=== PATIENT | female | born 1940 | race Caucasian/White ===

== ENCOUNTER 2018-08-25 14:38 | Inpatient (IN) ==
[2018-08-25] MEDS ORDERED: ONDANSETRON INJ 2 MG/ML 2 ML VIAL IV STA (15:26)
[2018-08-25] MEDS ORDERED: FAMOTIDINE 20MG IV PUSH 20 MG/5 ML SYR IV STA (15:26)
[2018-08-25] MEDS ORDERED: SODIUM CHLORIDE 0.9% 1000ML 1,000 ML IV SCH (15:30)
[2018-08-25 15:50] LABS: Basophils # (auto) 0.02 K/uL (0-0.2); Basophils % (auto) 0.3 %; Eosinophils # (auto) 0.08 K/uL (0-0.5); Eosinophils % (auto) 1.2 %; Hematocrit (blood only) 37.4 % (37-47); Immature Granulocytes # (auto) 0.02 K/uL (0.00-0.02); Immature Granulocytes % (auto) 0.3 %; Lymphocytes # (auto) 1.28 K/uL (1.2-3.4); Lymphocytes % (auto) 19.4 %; Mean Corpuscular Hgb Conc 32.1 g/dL (32-36); Mean Platelet Volume 10.1 fL (7.4-10.4); Monocytes # (auto) 0.44 K/uL (0.11-0.59); Monocytes % (auto) 6.7 %; Neutrophils # (auto) 4.77 K/uL (1.4-6.5); Neutrophils % (auto) 72.1 %; Platelet Count 291 K/uL (130-400); RDW Coefficient of Variation 16.6 % (11.5-14.5); RDW Standard Deviation 57.2 fL (36.4-46.3); Red Blood Count 4.02 M/uL (4.2-5.4); White Blood Count 6.61 K/uL (4.8-10.8)
[2018-08-25 15:54] LABS: iSTAT Creatinine 0.6 mg/dl (0.6-1.3); iSTAT Hemoglobin 12.2 g/dl (12.0-16.0); iSTAT Ionized Calcium 1.14 mmol/l (1.12-1.32); iSTAT Potassium 3.4 mEq/L (3.3-5.0)
--- NOTE | 2018-08-25 15:57 | XRay Report ---
XR chest 1V portable HISTORY: 77 years-old Female vomiting blood acute emesis COMPARISON: Chest radiograph 06/16/2017 TECHNIQUE: Portable AP view of the chest FINDINGS: Cardiac mediastinal and hilar silhouettes are unchanged. Stable ill-defined 8 mm nodular opacity abou t the lateral left midlung. Mild right hemidiaphragmatic elevation. Subsegmental left basilar atelect asis/scarring. Stable positioning of the right IJ [id number] catheter. Bones of the chest appear g rossly intact. Cholecystectomy. IMPRESSION: 1. No acute process. 2. Unchanged 8 mm nodular opacity of the lateral left midlung. The above report was generated using voice recognition software. It may contain grammatical, syntax o r spelling errors. Electronically signed by: Chester Santizo M.D. 08/25/2018 3:56 PM
[2018-08-25 16:05] LABS: Partial Thromboplastin Ratio 0.9; Partial Thromboplastin Time 24.5 Seconds (21.0-31.0); Prothrombin Time 10.1 Seconds (9.0-12.0)
[2018-08-25 16:08] LABS: Albumin Level 2.9 gm/dl (3.4-5.0); BUN Creatinine Ratio 19.7 (10-20); Calcium 8.4 mg/dl (8.5-10.1); Creatinine Clr Calc Pharmacy 55.5 ml/min; Est GFR (African American) 97.9; Est GFR (Non-African American) 84.4; Potassium 3.3 mmol/L (3.5-5.1)
[2018-08-25 16:12] LABS: Albumin Globulin Ratio 0.9 (0.9-2); Bilirubin,Total 0.7 mg/dl (0.2-1); Globulin 3.1 gm/dl (2.5-4.0); Troponin I 0.022 ng/ml (0-0.045)
[2018-08-25] MEDS ORDERED: PANTOprazole 80 MG in DEXTROSE 5% 100 ML IV STA (16:20)
--- NOTE | 2018-08-25 16:37 | CT Scan Report ---
ABDOMEN AND PELVIS CT WITHOUT CONTRAST CT DOSE: 277.07 mGy.cm HISTORY: Acute vomiting with recent Whipple procedure vomiting blood, s/p whipple TECHNIQUE: Multiaxial CT images of the abdomen and pelvis were performed without contrast. A dose lo wering technique was utilized adhering to the principles of ALARA. COMPARISON STUDY: None. FINDINGS: Limited study without the use of IV contrast. Minimal subsegmental linear consolidative pleural-based opacities suggest probable atelectasis. No pneumatosis or pneumoperitoneum. The imaged inferior card iac chambers are mildly enlarged with dense mitral annular calcifications and small pericardial effus ion. Severe hepatic steatosis. Cholecystectomy. Spleen and right adrenal gland appear normal. There is mil d thickening of the left adrenal gland. 4 mm nonobstructing calculus of the inferior pole left kidney . 2 mm nonobstructing calculus of the interpolar right kidney. No ureteral calculi or obstructive uro emre. Ureters are unremarkable. Mild wall thickening of the bladder with partial distention. Uterus and adnexa appear unremarkable. Calcified plaque of the aorta without aneurysm. No adenopathy identif ied. Moderate parenchymal atrophy of the pancreas. Postoperative changes compatible with partial panc reaticoduodenectomy (Whipple procedure). A stent is noted extending from the pancreas into the pancre aticoduodenal anastomosis. There is mild stranding about the central abdomen without drainable fluid collection. Trace free pelvic fluid. Nonspecific mildly prominent lymph nodes about the mid mesentery . There is mild wall thickening at the enterogastric anastomosis. Bowel gas pattern is nonobstructive . Terminal ileum and pancreas are unremarkable. Postoperative changes of the ventral abdominal wall w ith mild stranding. Demineralized appearance the bones with degenerative changes of the spine, pelvis and hips. IMPRESSION: 1. Postoperative changes compatible with partial pancreaticoduodenectomy (Whipple procedure). A stent is noted extending from the pancreas into the pancreaticoduodenal anastomosis. 2. No bowel obstruction. Mild wall thickening is noted at the enterogastric anastomosis and there is mild central mesenteric inflammatory stranding with trace abdominal pelvic ascites, likely postsurgic al. No drainable fluid collection. 3. Severe hepatic steatosis. 4. Nonobstructing bilateral nephrolithiasis. 5. Additional findings as above. Electronically signed by: Chester Santizo M.D. 08/25/2018 4:35 PM
--- NOTE | 2018-08-25 16:49 | Gastrointestinal Consultation ---
Date of Consultation August 25, 2018 Assessment & Plan (1) Upper GI bleed: (2) Nausea: (3) Vomiting: Pt is a 77 y/o female w hx of pancreas ca s/p Whipple in 03/2018 who presented to ED w c/o hematemesis associated w abd pain earlier today. No more abd pain, n/v since in ED, VS stable, H/H stable w/o rise of BUN/Cr or LFTs. DDx: PUD, anastomotic ulcer, gastritis. - CT abd/pelvis obtained, results pending - Start PPI bolus and gtt; IVF hydration - Pt is a Confucianism, refuses blood products. Monitor H/H - If CT is w/o obstructive signs ok for her to try CL diet today but please make her NPO after midnight and we'll re-eval her tomorrow to see if she needs EGD. History of Present Illness Reason for Consultation: Hematemesis Requesting Physician: Dr. Dave Watson. Attending Physician: Dr. Huang Billings History of Present Illness Pt is a 77 y/o female w PMHx including pancreas ca s/p Whipple 03/2018 who presented to ED w c/o hematemesis. She had been undregoing Gemzar chemo, last session 3 weeks ago. However several doses held due to her feeling nausea and having GI upset for last couple of weeks. This AM had breakfast consisted of eggs, potatoes, coffee at 4AM, was working in garden and around 10A went back to house after feeling stomach was upset. She had a BM which was solid and denies any black or tarry, rectal bleeding. But then also started to have n/v. Initial emesis had some red blood mixed and she had another episode by around 1PM which had dark clots. She hasn't had any n/v, abd pain since arrived in ED. Just had CT abd/pelvis which is pending. VS stable. Labs reviewed which showed no leukocytosis, H/H 02/07, PT/INR 10. BUN/Cr, LFTs normal. She denies any NSAIDs, tobacco, ETOH. Allergies Allergy/AdvReac Type Severity Reaction Status Date / Time No Known Allergies Allergy Verified 08/25/18 16:24 Home Medications Home Medications Medication Instructions Recorded Confirmed Type atenolol 25 mg PO QAM 04/29/19 07/09/19 History ondansetron HCl 8 mg PO Q8H PRN 08/25/18 08/25/18 History Patient History Medical History Pancreatic cancer (Chronic) Hypertension (Chronic) Patient is Confucianism (Chronic) Osteoarthritis (Chronic) Surgical History History of pancreatic surgery (Chronic) WHIPPLE PROCEDURE (MAR 2018) History of ERCP (Chronic) History of colonoscopy (Chronic) History of tonsillectomy (Chronic) Family History Father Family history of diabetes mellitus Social History Preferred Language: Venezuelan Communication Ability: Effective Datacap Developer Required: Yes Beliefs That Will Affect Care: Jainism Jainism Beliefs: roman catholic Current Living Situation: Alone Current Living Situation Comment: daughter staying with patient currently. Other Information That Helps Us Care for You: No Feels Safe at Home: Yes Safety Concerns: Feels Safe At This Time Smoking Status: Never smoker Second Hand Exposure: Yes ( A CHILD) Hx Alcohol Use: No Hx Substance Use: No Review of Systems Review of Systems: All systems reviewed & are unremarkable except as noted in HPI & below Physical Exam Constitutional: WD/WN, vitals as above well groomed, cooperative and comfortable Eyes: PERRL, conjunctivae normal, anicteric sclerae ENMT: external ear and nose normal, oropharynx normal Respiratory: normal respiratory effort, lungs clear to auscultation Cardiovascular: RRR, no murmur, no edema Gastrointestinal (Abdomen): normal bowel sounds, soft, nontender, no hepatosplenomegaly Skin: no rashes, warm and dry no jaundice Neurologic: Motor/Sensory: no asterixis Psychiatric: A+Ox3, euthymic affect Lymphatic: no lymphedema Results & Data Vital Signs (Past 12 Hours) Vital Signs Temp Pulse Resp BP Pulse Ox 08/25/18 14:41 36.6 C 62 16 163/82 H 99 Laboratory Results Laboratory Results - last 72 hr 08/25/18 08/25/18 08/25/18 15:34 15:34 15:34 WBC 6.61 RBC 4.02 L Hgb 12.0 POC Hgb Hct 37.4 POC Hct MCV 93.0 MCH 29.9 MCHC 32.1 RDW Std Deviation 57.2 H RDW Coeff of Darlene 16.6 H Plt Count 291 MPV 10.1 Immature Gran % (Auto) 0.3 Neut % (Auto) 72.1 Lymph % (Auto) 19.4 [place] % (Auto) 6.7 Eos % (Auto) 1.2 Baso % (Auto) 0.3 Immature Gran # (Auto) 0.02 Neut # (Auto) 4.77 Lymph # (Auto) 1.28 [place] # (Auto) 0.44 Eos # (Auto) 0.08 Baso # (Auto) 0.02 PT 10.1 INR 1.0 APTT 24.5 PTT Ratio 0.9 POC Sodium Sodium 143 POC Potassium Potassium 3.3 L POC Chloride Chloride 108 H Carbon Dioxide 28 POC Total CO2 Anion Gap 7.0 POC Anion Gap POC BUN BUN 13 Creatinine 0.65 POC Creatinine Est Cr Clr Drug Dosing 55.5 Est GFR ( Amer) 97.9 Est GFR (Non-Af Amer) 84.4 BUN/Creatinine Ratio 19.7 Glucose 98 POC Glucose (other) Calcium 8.4 L POC Ioniz Calcium Nolberto Total Bilirubin 0.7 AST 19 ALT 21 Alkaline Phosphatase 108 Troponin I 0.022 Total Protein 6.0 L Albumin 2.9 L Globulin 3.1 Albumin/Globulin Ratio 0.9 08/25/18 15:40 WBC RBC Hgb POC Hgb 12.2 Hct POC Hct 36 L MCV MCH MCHC RDW Std Deviation RDW Coeff of Darlene Plt Count MPV Immature Gran % (Auto) Neut % (Auto) Lymph % (Auto) [place] % (Auto) Eos % (Auto) Baso % (Auto) Immature Gran # (Auto) Neut # (Auto) Lymph # (Auto) [place] # (Auto) Eos # (Auto) Baso # (Auto) PT INR APTT PTT Ratio POC Sodium 142 Sodium POC Potassium 3.4 Potassium POC Chloride 103 Chloride Carbon Dioxide POC Total CO2 27 Anion Gap POC Anion Gap 16.0 POC BUN 13 BUN Creatinine POC Creatinine 0.6 Est Cr Clr Drug Dosing Est GFR ( Amer) Est GFR (Non-Af Amer) BUN/Creatinine Ratio Glucose POC Glucose (other) 101 H Calcium POC Ioniz Calcium Nolberto 1.14 Total Bilirubin AST ALT Alkaline Phosphatase Troponin I Total Protein Albumin Globulin Albumin/Globulin Ratio (1) Vomiting Nausea presence: with nausea Vomiting Intractability: unspecified Vomiting type: unspecified Qualified Code(s): R11.2 - Nausea with vomiting, unspecified
--- NOTE | 2018-08-25 17:20 | History & Physical Report ---
Date of Service August 25, 2018 Assessment & Plan (1) Upper GI bleed: This is a 77 yo F with a PMH of pancreatic cancer (s/p partial Whipple in Mar 2018, on adjuvant chemo), HTN and other medical problems below who presents after 2 episodes of hematemesis this morning. -Two episodes of hematemesis earlier today in the setting of chemo treatment for pancreatic cancer -Ddx: PUD, gastritis, anastomotic ulcer -Hgb stable at 12. Will repeat H&H at 2100 -CT abd/pelvis with postoperative changes compatible with partial pancreaticoduodenectomy (Whipple procedure). A stent is noted extending from the pancreas into the pancreaticoduodenal anastomosis. No bowel obstruction. Mild wall thickening is noted at the enterogastric anastomosis and there is mild central mesenteric inflammatory stranding with trace abdominal pelvic ascites, likely postsurgical. No drainable fluid collection. -Protonix bolus and drip started, continue with maintenance IV fluids -Patient is a Oriental orthodox, refuses blood products. Monitor H/H -Clear liquid diet, NPO after midnight -GI service saw in ED and will re-evaluate tomorrow for possible EGD (2) Pancreatic cancer: (3) History of pancreatic surgery: S/p partial Whipple in Mar 2018 -Has completed 2 cycles of gemcitabine chemotherapy, with the most recent session 3 weeks ago -Follows with Dr. Chadwick (4) Hypertension: Continue home dose atenolol (5) Patient is Oriental orthodox: Not interested in receiving blood products DVT Ppx: SCDs in setting of hemetemesis Code status: FULL PCP: Derick ([place]) Dispo: Ad[facility]. Plan to return home once medically stable. Patient seen in collaboration with Dr. Augustin. Please see addendum. History of Present Illness Chief Complaint: vomited blood Primary Care Provider: Gloria Sepulveda MD This is a 77 yo F with a PMH of pancreatic cancer (s/p partial Whipple in Mar 2018, on adjuvant chemo), HTN and other medical problems below who presents after 2 episodes of hematemesis this morning. Patient has completed 2 cycles of gemcitabine chemotherapy, with the most recent session 3 weeks ago. Was due again last week, but due to low-grade fever and weakness, Dr. Netta decided to postpone chemotherapy until next week. Patient took Zofran this morning prior to eating breakfast this morning and then worked in [employer]. [place] nauseated around 10:30 AM and threw up a teaspoon-sized amount of bright red blood, followed by one more episode of darker emesis with presence of blots around 1pm. Also had one normal bowel movement prior to arrival. Denies any melena or hematochezia. Remote history of GERD in the past. No history of peptic ulcer disease. Not taking aspirin or anticoagulation. Currently endorsing intermittent aching pain in lower abdomen as well as generalized weakness. Feels nauseated when she eats or is digesting food but currently is asymptomatic. No fever, chills, lightheadedness, headache, chest pain, shortness of breath, dysuria, diarrhea or constipation. Vital signs stable. Hemoglobin stable at 12. BUN/Cr within normal range. LFTs normal. Of note, patient is a Anglican and is not interested in receiving any blood products. Allergies Allergy/AdvReac Type Severity Reaction Status Date / Time No Known Allergies Allergy Verified 08/25/18 16:24 Home Medications Home Medications Medication Instructions Recorded Confirmed Type atenolol 25 mg PO QAM 06/15/18 08/25/18 History ondansetron HCl 8 mg PO Q8H PRN 08/25/18 08/25/18 History Past Med/Surg History Medical History Pancreatic cancer (Chronic) Hypertension (Chronic) Patient is Oriental orthodox (Chronic) Osteoarthritis (Chronic) Surgical History History of pancreatic surgery (Chronic) WHIPPLE PROCEDURE (MAR 2018) History of ERCP (Chronic) History of colonoscopy (Chronic) History of tonsillectomy (Chronic) Family History Father Family history of diabetes mellitus Social History Preferred Language: Luxembourgish Communication Ability: Effective Beliefs That Will Affect Care: Congregation Congregation Beliefs: MANDAEN Current Living Situation Comment: DAUGHTER STAYING WITH PATIENT CURRENTLY Feels Safe at Home: Yes Smoking Status: Never smoker Second Hand Exposure: Yes ( A CHILD) Hx Alcohol Use: No Hx Substance Use: No Review of Systems Review of Systems: At least ten systems reviewed and negative except as noted in the HPI. Physical Exam Physical Exam: General Appearance: WD/WN, no apparent distress, resting comfortably, appears chronically ill Head: normocephalic, atraumatic Eyes: normal inspection, PERRL, EOMI ENT: hearing grossly normal, pharynx normal (moist mucous membranes) Neck: supple, no JVD, no adenopathy Respiratory/Chest: lungs clear to auscultation. No wheezes, rales or rhonci. No respiratory distress or accessory muscle use Cardiovascular: regular rate, rhythm, no murmur, normal peripheral pulses, 1+ BLE edema Abdomen/GI: normal bowel sounds, soft, mildly tender to palpation in RLQ, LLQ. No guarding or distention Extremities/Musculoskelatal: normal inspection, no calf tenderness, normal capillary refill Neurologic/Psych: alert, normal mood/affect, oriented x 3 Skin: normal color, warm/dry Results & Data Vital Signs (Past 12 Hours) Vital Signs Temp Pulse Resp BP Pulse Ox 08/25/18 15:26 99 08/25/18 14:41 36.6 C 62 16 163/82 H 99 Laboratory Results Short CBC 08/25/18 Range/Units 15:34 WBC 6.61 (4.8-10.8) K/uL Hgb 12.0 (12.0-16.0) g/dL Hct 37.4 (37-47) % Plt Count 291 (130-400) K/uL BMP 08/25/18 15:34 Sodium 143 Potassium 3.3 L Chloride 108 H Carbon Dioxide 28 BUN 13 Creatinine 0.65 Glucose 98 Calcium 8.4 L Cardiac Enzymes 08/25/18 Range/Units 15:34 Troponin I 0.022 (0-0.045) ng/ml Liver Function 08/25/18 Range/Units 15:34 Total Bilirubin 0.7 (0.2-1) mg/dl AST 19 (15-37) U/L ALT 21 (12-78) U/L Alkaline Phosphatase 108 (45-117) U/L Albumin 2.9 L (3.4-5.0) gm/dl Diagnostic Findings CXR: IMPRESSION: 1. No acute process. 2. Unchanged 8 mm nodular opacity of the lateral left midlung. CT abd/pelvis: IMPRESSION: 1. Postoperative changes compatible with partial pancreaticoduodenectomy (Whipple procedure). A stent is noted extending from the pancreas into the pancreaticoduodenal anastomosis. 2. No bowel obstruction. Mild wall thickening is noted at the enterogastric anastomosis and there is mild central mesenteric inflammatory stranding with trace abdominal pelvic ascites, likely postsurgical. No drainable fluid collection. 3. Severe hepatic steatosis. 4. Nonobstructing bilateral nephrolithiasis. 5. Additional findings as above. Supervising Physician Co-Signing Physician Notes Patient is a 77-year-old female with history of pancreatic cancer who underwent partial Whipple surgery in March 2018, ongoing chemotherapy, other problems presents with history of 2 episodes of hematemesis this morning. She denies any use of aspirin, NSAIDs, blood thinners. Also denies any history of melena, hematuria, and epistaxis, hematochezia. She admits to having intermittent, dull lower abdominal pain associated with generalized weakness, nausea. Please review HPI for complete details of presentation. On exam patient is moderately built and nourished, normocephalic atraumatic, lungs decreased breath sounds, clear to auscultation, Chemo-Port on right side of the chest, S1-S2, no murmur, abdomen-soft, nontender, bowel sounds present, well-healing surgical scar noted on the abdomen, grossly no focal neurological deficits, 1+ bilateral pitting pedal edema. Patient is admitted for management of hematemesis/upper GI bleed. CT abdomen showed no acute findings. Patient is started on IV Protonix drip, IV fluids. We will plan to monitor H&H. Patient is Jehovah witness and refuses blood transfusions. We will keep her n.p.o. after midnight for possible EGD in the morning. Appreciate GI input. Replace potassium. Chest x-ray showed lateral left midlung nodular opacity. She denies any respiratory symptoms. Will need further evaluation as outpatient. Nonobstructing nephrolithiasis, hepatic steatosis also noted on imaging studies. Currently asymptomatic. I personally reviewed the record. Patient is interviewed and examined at bedside. Patient's care is coordinated with Lina Yao PA-C. Please refer to the documentation above for details of patient's presentation and for discussion of other issues.
[2018-08-25] MEDS: PANTOprazole 40 MG in DEXTROSE 5% 100 ML IV SCH ×2 (17:27→21:56)
[2018-08-25] MEDS ORDERED: ACETAMINOPHEN 1000 MG/100 ML IV IV PRN (18:15)
[2018-08-25] MEDS ORDERED: ONDANSETRON INJ 2 MG/ML 2 ML VIAL IV PRN (18:15)
[2018-08-25] MEDS ORDERED: ACETAMINOPHEN 1,000 MG/100 ML VIAL IV PRN (18:45)
[2018-08-25] MEDS: NSS + 20MEQ KCL 20 MEQ/1,000 ML BAG IV SCH (19:43)
--- NOTE | 2018-08-25 22:40 | Emergency Department Note ---
Entered by Lenora Damon acting as a scribe for Dave Rubin MD ED Provider Note CHIEF COMPLAINT: Hematemesis HISTORY OF PRESENT ILLNESS: The patient is a 77 year old female who presents to the Emergency Room with complaints of hematemesis. The patient states that she has been vomiting blood that occurred at 1030 which was bright red and then again at 1115 which contained blood clots. She states that she has been nauseous. She reports that she had a Whipple procedure at [place] 3 months ago due to her pancreatic ca ncer. She reports that her last chemotherapy treatment was 3 weeks ago. She reports that she was referred her from her Oncologist. She denies any recent blood transfusions. She states that she took nausea medication prior to arrival which did not alleviate her symptoms. The patient notes that she takes hypertensive medication. Pt denies LOC, headache, fevers, chills, diaphoresis, visual changes, neck pain, chest pain, breathing difficulties, abdominal pain, back pain, melena, hematochezia, urinary symptoms, numbness, weakness, lymphadenopathy, rash, or other complaints. REVIEW OF SYSTEMS: See HPI for pertinent positives and negatives. A total of ten systems were reviewed and were otherwise negative. PMHx/PSHx: Pnacreatic cancer and Whipple procedure. SOCIAL HISTORY: Patient lives at home. PHYSICAL EXAM: GENERAL: Awake, alert, well-appearing, in no distress HENT: Normocephalic, atraumatic. Oropharynx unremarkable. EYES: PERRL. Normal conjunctiva. Sclera non-icteric. NECK: Inspection normal. Non-tender. Supple. No nuchal rigidity. FROM. No m asses. RESPIRATORY: Clear to auscultation. No wheezes. No rales. Normal respiratory effort. CARDIAC: Normal rate. Normal rhythm. No murmurs. No rubs. Extremities warm and well perfused. Pulses equal. No JVD. GI: Soft, non-distended. No tenderness to palpation. No rebound or guarding. No masses. Midline surgical scar that is well healed. RECTAL: Deferred. MUSCULOSKELETAL: Atraumatic. Chest examination reveals no tenderness. The back is symmetrical on inspection without obvious abnormality. There is no CVA tenderness to palpation. No joint edema. LOWER EXTREMITIES: Calves are equal size bilaterally and non-tender. Trace pedal edema. No discoloration. NEURO: Normal sensorium. No sensory or motor deficits noted. SKIN: No rash or jaundice noted. EMERGENCY DEPARTMENT COURSE: 1524: Past medical records reviewed. The patient was evaluated in room B6, and a complete history and physical examination were performed. 1553: I reviewed the patient's case with Dr. Jesusita Larry Gastroenterology. 1631: I discussed the patient's case with Lina Larry PA-C, Dr. Augustin will further evaluate the patient. MEDICAL DECISION MAKING: Triage Nursing notes reviewed and agree them. The patient's history was concerning for possible gastrointestinal bleeding. Differential diagnosis: Etiologies such as complication of recent surgery, diverticulosis, AVM, coagulopathy, colitis, inflammatory bowel disease, malignancy,Courtney-Llanos tear, esophagitis, peptic ulcer disease, variceal bleed, gastritis, epistaxis, fissure, hemorrhoids, as well as others were entertained. Physical exam: As above. Benign abdomen. Stable vitals per ER treatment provided: N.p.o. IV Pepcid Protonix bolus and drip Monitoring On reassessment the patient was stable. Diagnostics interpreted by me: ECG: Normal sinus without ischemia. The labs revealed an unremarkable CBC and chemistry panel. Imaging studies: Chest x-ray and CT scan were performed and negative for acute disease. Consultation: A consultation was placed with the [facility]. The patient was evaluated in the ER. Further management in the hospital was recommended. A consultation was placed with the hospitalist. The case was discussed and diagnostics were reviewed. The patient was evaluated in the ER for further treatment. IMPRESSION: Upper GI bleed, nausea, and vomiting PLAN: Admitted The scribe's documentation has been prepared under my direction and personally reviewed by me in its entirety. I confirm that the note above accurately reflects all work, treatment, procedures, and medical decision making performed by me. Impression & Plan Upper GI bleed, Nausea, Vomiting Past Med/Surg History Medical History Pancreatic cancer (Chronic) Hypertension (Chronic) Patient is Sabianist (Chronic) Osteoarthritis (Chronic) Surgical History History of pancreatic surgery (Chronic) WHIPPLE PROCEDURE (MAR 2018) History of ERCP (Chronic) History of colonoscopy (Chronic) History of tonsillectomy (Chronic) Family History Father Family history of diabetes mellitus Social History Preferred Language: Divehi Communication Ability: Effective Litigation Attorney Required: Yes Beliefs That Will Affect Care: Quaker Quaker Beliefs: sikhism Current Living Situation: Alone Current Living Situation Comment: daughter staying with patient currently. Other Information That Helps Us Care for You: No Feels Safe at Home: Yes Safety Concerns: Feels Safe At This Time Smoking Status: Never smoker Second Hand Exposure: Yes ( A CHILD) Hx Alcohol Use: No Hx Substance Use: No Results & Data Vital Signs Vital Signs - 24 hr 08/25/18 14:41 08/25/18 15:26 Temperature 36.6 C Temperature Source Oral Sepsis Recent Fever Within 48 Hours No Sepsis New/Unexplained Change in Mental Status No Sepsis Action Taken by Nursing No Action Required Pulse Rate 62 Respiratory Rate 16 Blood Pressure 163/82 H Blood Pressure Mean 109 Pulse Oximetry 99 99 Oxygen Delivery Method Room Air Home Medications Current Medication List: was personally reviewed by me Laboratory Data Attestation: I reviewed the patient's lab results. Result diagrams: 08/25/18 21:07 08/25/18 15:34 Lab Results 08/25/18 08/25/18 08/25/18 Range/Units 15:34 15:34 15:34 WBC 6.61 (4.8-10.8) K/uL RBC 4.02 L (4.2-5.4) M/uL Hgb 12.0 (12.0-16.0) g/dL POC Hgb (12.0-16.0) g/dl Hct 37.4 (37-47) % POC Hct (37-47) % MCV 93.0 (80-100) fL MCH 29.9 (25-34) pg MCHC 32.1 (32-36) g/dL RDW Std Deviation 57.2 H (36.4-46.3) fL RDW Coeff of Darlene 16.6 H (11.5-14.5) % Plt Count 291 (130-400) K/uL MPV 10.1 (7.4-10.4) fL Immature Gran % (Auto) 0.3 % Neut % (Auto) 72.1 % Lymph % (Auto) 19.4 % Richardson % (Auto) 6.7 % Eos % (Auto) 1.2 % Baso % (Auto) 0.3 % Immature Gran # (Auto) 0.02 (0.00-0.02) K/uL Neut # (Auto) 4.77 (1.4-6.5) K/uL Lymph # (Auto) 1.28 (1.2-3.4) K/uL Richardson # (Auto) 0.44 (0.11-0.59) K/uL Eos # (Auto) 0.08 (0-0.5) K/uL Baso # (Auto) 0.02 (0-0.2) K/uL PT 10.1 (9.0-12.0) Seconds INR 1.0 (0.9-1.1) APTT 24.5 (21.0-31.0) Seconds PTT Ratio 0.9 POC Sodium (135-144) mEq/L Sodium 143 (136-145) mmol/L POC Potassium (3.3-5.0) mEq/L Potassium 3.3 L (3.5-5.1) mmol/L POC Chloride (101-112) mEq/L Chloride 108 H (98-107) mmol/L Carbon Dioxide 28 (21-32) mmol/L POC Total CO2 (24-31) mEq/l Anion Gap 7.0 (3-11) POC Anion Gap (16-25) mmol/L POC BUN (7-18) mg/dl BUN 13 (7-18) mg/dl Creatinine 0.65 (0.6-1.2) mg/dl POC Creatinine (0.6-1.3) mg/dl Est Cr Clr Drug Dosing 55.5 ml/min Est GFR ( Amer) 97.9 Est GFR (Non-Af Amer) 84.4 BUN/Creatinine Ratio 19.7 (10-20) Glucose 98 (70-99) mg/dl POC Glucose (other) (70-99) mg/dl Calcium 8.4 L (8.5-10.1) mg/dl POC Ioniz Calcium Nolberto (1.12-1.32) mmol/l Total Bilirubin 0.7 (0.2-1) mg/dl AST 19 (15-37) U/L ALT 21 (12-78) U/L Alkaline Phosphatase 108 (45-117) U/L Troponin I 0.022 (0-0.045) ng/ml Total Protein 6.0 L (6.4-8.2) gm/dl Albumin 2.9 L (3.4-5.0) gm/dl Globulin 3.1 (2.5-4.0) gm/dl Albumin/Globulin Ratio 0.9 (0.9-2) Blood Type Antibody Screen 08/25/18 08/25/18 Range/Units 15:34 15:40 WBC (4.8-10.8) K/uL RBC (4.2-5.4) M/uL Hgb (12.0-16.0) g/dL POC Hgb 12.2 (12.0-16.0) g/dl Hct (37-47) % POC Hct 36 L (37-47) % MCV (80-100) fL MCH (25-34) pg MCHC (32-36) g/dL RDW Std Deviation (36.4-46.3) fL RDW Coeff of Darlene (11.5-14.5) % Plt Count (130-400) K/uL MPV (7.4-10.4) fL Immature Gran % (Auto) % Neut % (Auto) % Lymph % (Auto) % Richardson % (Auto) % Eos % (Auto) % Baso % (Auto) % Immature Gran # (Auto) (0.00-0.02) K/uL Neut # (Auto) (1.4-6.5) K/uL Lymph # (Auto) (1.2-3.4) K/uL Richardson # (Auto) (0.11-0.59) K/uL Eos # (Auto) (0-0.5) K/uL Baso # (Auto) (0-0.2) K/uL PT (9.0-12.0) Seconds INR (0.9-1.1) APTT (21.0-31.0) Seconds PTT Ratio POC Sodium 142 (135-144) mEq/L Sodium (136-145) mmol/L POC Potassium 3.4 (3.3-5.0) mEq/L Potassium (3.5-5.1) mmol/L POC Chloride 103 (101-112) mEq/L Chloride (98-107) mmol/L Carbon Dioxide (21-32) mmol/L POC Total CO2 27 (24-31) mEq/l Anion Gap (3-11) POC Anion Gap 16.0 (16-25) mmol/L POC BUN 13 (7-18) mg/dl BUN (7-18) mg/dl Creatinine (0.6-1.2) mg/dl POC Creatinine 0.6 (0.6-1.3) mg/dl Est Cr Clr Drug Dosing ml/min Est GFR ( Amer) Est GFR (Non-Af Amer) BUN/Creatinine Ratio (10-20) Glucose (70-99) mg/dl POC Glucose (other) 101 H (70-99) mg/dl Calcium (8.5-10.1) mg/dl POC Ioniz Calcium Nolberto 1.14 (1.12-1.32) mmol/l Total Bilirubin (0.2-1) mg/dl AST (15-37) U/L ALT (12-78) U/L Alkaline Phosphatase (45-117) U/L Troponin I (0-0.045) ng/ml Total Protein (6.4-8.2) gm/dl Albumin (3.4-5.0) gm/dl Globulin (2.5-4.0) gm/dl Albumin/Globulin Ratio (0.9-2) Blood Type A Positive Antibody Screen NEGATIVE Administered Medications Pantoprazole Sodium 40 mg/ (Dextrose) 100 mls @ 20 mls/hr IV Q5H [facility] Stop: 09/24/18 16:29 Last Admin: 08/25/18 21:56 Dose: 20 mls/hr Documented by: [id number] Infusion: 08/25/18 21:56 Dose: 20 mls/hr Documented by: [id number] Admin: 08/25/18 17:27 Dose: 20 mls/hr Documented by: [id number] Potassium Chloride/Sodium Chloride (Normal Saline W/20 Meq Kcl) 20 meq in 1,000 mls @ 80 mls/hr IV .[id number] [facility] Stop: 09/24/18 18:59 Last Admin: 08/25/18 19:43 Dose: 80 mls/hr Documented by: [id number] Ondansetron HCl (Zofran) 4 mg IV Q6H PRN PRN Reason: Nausea Stop: 09/24/18 18:14 Last Admin: 08/25/18 20:57 Dose: 4 mg Documented by: [id number] Discontinued Medications Famotidine (Pepcid 20mg Iv Push) 20 mg in 5 mls @ 2.5 mls/min IV NOW STA Stop: 08/25/18 15:27 Last Admin: 08/25/18 16:22 Dose: 2.5 mls/min Documented by: [id number] Sodium Chloride (Nss 1000ml) 1,000 mls @ 100 mls/hr IV .Q10H [facility]EL[facility] Stop: 08/26/18 01:29 Last Infusion: 08/25/18 18:23 Dose: 0 mls/hr Documented by: [id number] Admin: 08/25/18 16:22 Dose: 100 mls/hr Documented by: [id number] Pantoprazole Sodium 80 mg/ (Dextrose) 120 mls @ 480 mls/hr IV NOW STA Stop: 08/25/18 16:34 Last Infusion: 08/25/18 17:05 Dose: 0 mls/hr Documented by: [id number] Admin: 08/25/18 16:48 Dose: 480 mls/hr Documented by: [id number] Ondansetron HCl (Zofran) 4 mg IV ONE STA Stop: 08/25/18 15:27 Last Admin: 08/25/18 16:22 Dose: 4 mg Documented by: [id number] Imaging Data Radiologist's Impression: Radiology results as stated below per my review and the radiologist's interpretation: XR chest 1V portable HISTORY: 77 years-old Female vomiting blood acute emesis COMPARISON: Chest radiograph 06/16/2017 TECHNIQUE: Portable AP view of the chest FINDINGS: Cardiac mediastinal and hilar silhouettes are unchanged. Stable ill-defined 8 mm nodular opacity about the lateral left midlung. Mild right hemidiaphragmatic elevation. Subsegmental left basilar atelectasis/scarring. Stable positioning of the right IJ Kxhgge-e-Hyju catheter. Bones of the chest appear grossly intact. Cholecystectomy. IMPRESSION: 1. No acute process. 2. Unchanged 8 mm nodular opacity of the lateral left midlung. The above report was generated using voice recognition software. It may contain grammatical, syntax or spelling errors. Electronically signed by: Chester Santizo M.D. 08/25/2018 3:56 PM ABDOMEN AND PELVIS CT WITHOUT CONTRAST CT DOSE: 277.07 mGy.cm HISTORY: Acute vomiting with recent Whipple procedure vomiting blood, s/p whipple TECHNIQUE: Multiaxial CT images of the abdomen and pelvis were performed without contrast. A dose lowering technique was utilized adhering to the principles of ALARA. COMPARISON STUDY: None. FINDINGS: Limited study without the use of IV contrast. Minimal subsegmental linear consolidative pleural-based opacities suggest probable atelectasis. No pneumatosis or pneumoperitoneum. The imaged inferior cardiac chambers are mildly enlarged with dense mitral annular calcifications and small pericardial effusion. Severe hepatic steatosis. Cholecystectomy. Spleen and right adrenal gland appear normal. There is mild thickening of the left adrenal gland. 4 mm nonobstructing calculus of the inferior pole left kidney. 2 mm nonobstructing calculus of the interpolar right kidney. No ureteral calculi or obstructive uropathy. Ureters are unremarkable. Mild wall thickening of the bladder with partial distention. Uterus and adnexa appear unremarkable. Calcified plaque of the aorta without aneurysm. No adenopathy identified. Moderate parenchymal atrophy of the pancreas. Postoperative changes compatible with partial pancreaticoduodenectomy (Whipple procedure). A stent is noted extending from the pancreas into the pancreaticoduodenal anastomosis. There is mild stranding about the central abdomen without drainable fluid collection. Trace free pelvic fluid. Nonspecific mildly prominent lymph nodes about the mid mesentery. There is mild wall thickening at the enterogastric anastomosis. Bowel gas pattern is nonob structive. Terminal ileum and pancreas are unremarkable. Postoperative changes of the ventral abdominal wall with mild stranding. Demineralized appearance the bones with degenerative changes of the spine, pelvis and hips. IMPRESSION: 1. Postoperative changes compatible with partial pancreaticoduodenectomy (Whipple procedure). A stent is noted extending from the pancreas into the pancreaticoduodenal anastomosis. 2. No bowel obstruction. Mild wall thickening is noted at the enterogastric anastomosis and there is mild central mesenteric inflammatory stranding with trace abdominal pelvic ascites, likely postsurgical. No drainable fluid collection. 3. Severe hepatic steatosis. 4. Nonobstructing bilateral nephrolithiasis. 5. Additional findings as above. Electronically signed by: Chester Santizo M.D. 08/25/2018 4:35 PM ECG Data Attestation: I personally reviewed and interpreted this ECG as follows: Indication: vomiting Rate (beats per minute): 64 Rhythm: normal sinus Findings: + other (Poor R-wave progression); no PAC, no PVC, no ST depression and no ST elevation Comparison ECG Date: no prior available Blood Pressure Blood Pressure Findings: Elevated blood pressure Blood Pressure Disposition: further management by hospitalist Discharge Plan Visit Data *Final* Discharge Date/Time: 08/25/18 17:45 Chief Complaint: Vomiting Stated Complaint: VOMITING BLOOD ED Provider: Dave Rubin Discharge Problem: Upper GI bleed, Nausea, Vomiting Patient Disposition: Admitted As Inpatient Discharge Instructions Interventions: ED Discharge Assessment Last Done: 08/25/18 17:45 The scribe's documentation has been prepared under my direction and personally reviewed by me in its entirety. I confirm that the note above accurately reflects all work, treatment, procedures, and medical decision making performed by me.
[2018-08-26] MEDS: PANTOprazole 40 MG in DEXTROSE 5% 100 ML IV SCH ×3 (02:59→13:54)
[2018-08-26 06:18] LABS: Hematocrit (blood only) 32.8 % (37-47); Hemoglobin 10.5 g/dL (12.0-16.0); Mean Platelet Volume 10.2 fL (7.4-10.4); Platelet Count 229 K/uL (130-400); RDW Coefficient of Variation 16.8 % (11.5-14.5); RDW Standard Deviation 58.1 fL (36.4-46.3); Red Blood Count 3.49 M/uL (4.2-5.4); White Blood Count 4.02 K/uL (4.8-10.8)
[2018-08-26 06:58] LABS: Albumin Globulin Ratio 0.9 (0.9-2); Albumin Level 2.2 gm/dl (3.4-5.0); BUN Creatinine Ratio 12.8 (10-20); Bilirubin,Total 0.9 mg/dl (0.2-1); Calcium 7.6 mg/dl (8.5-10.1); Creatinine Clr Calc Pharmacy 64.4 ml/min; Est GFR (African American) 102.8; Est GFR (Non-African American) 88.7; Globulin 2.4 gm/dl (2.5-4.0); Potassium 3.1 mmol/L (3.5-5.1); Total Protein 4.6 gm/dl (6.4-8.2)
[2018-08-26] MEDS: NSS + 20MEQ KCL 20 MEQ/1,000 ML BAG IV SCH ×2 (08:19→21:05)
[2018-08-26] MEDS: ATENOLOL 25 MG TABLET PO SCH (08:21)
--- NOTE | 2018-08-26 10:50 | Gastroenterology Progress Note ---
Date of Service August 26, 2018 Assessment & Plan (1) Upper GI bleed: (2) Nausea: (3) Vomiting: Pt is a 77 y/o female w hx of pancreas ca s/p Whipple in 03/2018 who presented to ED w c/o hematemesis associated w abd pain earlier today. No more abd pain, n/v since in ED, VS stable, H/H stable w/o rise of BUN/Cr or LFTs. CT abd/pelvis w post Whipple changes and stent in pancreaticoduodenal anastomosis, no bowel obstructive but there's mild thickening in enterogastric anastomosis inflammatory stranding in central mesenteric area. - Will plan for EGD eval today to r/o anastomotic ulcer. - Continue NPO, PPI gtt - Pt is a Holiness, refuses blood products. Monitor H/H Supervising Physician Co-Signing Physician Notes Attending attestation I have seen, examined this patient, and agree with the findings and above by our mid-level provider Ms.Leonie Richard, with the following additions Patient with history of a Whipple due to pancreatic adeno CA, 2 bouts of hematemesis yesterday morning. No melena or hematemesis since. Plan for EGD today Subjective Pt denies any more abd pain, n/v overnight. Hasn't had any BMs. H/H stable w only slight drop likely related to dilutional. K 3.[address] abd/pelvis w/o contrast yesterday: 1. Postoperative changes compatible with partial pancreaticoduodenectomy (Whipple procedure). A stent is noted extending from the pancreas into the pancreaticoduodenal anastomosis. 2. No bowel obstruction. Mild wall thickening is noted at the enterogastric anastomosis and there is mild central mesenteric inflammatory stranding with trace abdominal pelvic ascites, likely postsurgical. No drainable fluid collection. 3. Severe hepatic steatosis. 4. Nonobstructing bilateral nephrolithiasis. 5. Additional findings as above. Review of Systems Review of Systems: All systems reviewed & are unremarkable except as noted in HPI & below Physical Exam Constitutional: WD/WN, vitals as above well groomed, cooperative and comfortable Eyes: PERRL, conjunctivae normal, anicteric sclerae ENMT: external ear and nose normal, oropharynx normal Respiratory: normal respiratory effort, lungs clear to auscultation Cardiovascular: RRR, no murmur, no edema Gastrointestinal (Abdomen): normal bowel sounds, soft, nontender, no h epatosplenomegaly Skin: no rashes, warm and dry no jaundice Neurologic: Motor/Sensory: no asterixis Psychiatric: A+Ox3, euthymic affect Lymphatic: no lymphedema Results & Data Vital Signs (Past 12 Hours) Vital Signs Temp Pulse Pulse Resp BP Pulse Ox 08/26/18 08:20 68 08/26/18 07:27 36.5 C 54 L 20 167/68 H 96 08/26/18 04:00 36.7 C 61 20 127/74 95 08/26/18 00:00 36.7 C 60 20 145/74 H 96 08/25/18 23:00 61 (1) Vomiting Nausea presence: with nausea Vomiting Intractability: unspecified Vomiting t ype: unspecified Qualified Code(s): R11.2 - Nausea with vomiting, unspecified
[2018-08-26] MEDS ORDERED: POTASSIUM ACETATE 10 MEQ in 0.9 % SODIUM CHLORIDE 100 ML IV STA (11:19)
--- NOTE | 2018-08-26 11:39 | Anesthesiology Consultation ---
Date of Service August 26, 2018 Assessment & Plan (1) Encounter for pre-operative examination: Chart Review Chart Review: Acceptable Risk for Surgery History Surgery Operation Date: 08/26/18 08:30 Proposed Procedures p Esophagogastroduodenoscopy Dr Awa Billings Height/Weight Height: 5 ft 2 in Weight: 54.9 kg Allergies Allergy/AdvReac Type Severity Reaction Status Date / Time No Known Allergies Allergy Verified 08/25/18 16:24 Medications Home Medications Medication Instructions Recorded Confirmed Last Taken atenolol 25 mg PO QAM 06/15/18 08/25/18 08/25/18 ondansetron HCl 8 mg PO Q8H PRN 08/25/18 08/25/18 Unknown Active Medications Generic Name Dose Route Start Last Admin Trade Name Freq PRN Reason Stop Dose Admin Atenolol 25 mg 08/26/18 09:00 08/26/18 08:21 Tenormin PO 09/25/18 08:59 25 mg QAM ANNELISE Administration Pantoprazole Sodium 40 mg/ 100 mls @ 20 mls/hr 08/25/18 16:30 08/26/18 11:37 Dextrose IV 09/24/18 16:29 0 mls/hr Q5H ANNEL[facility] Infusion Potassium Chloride/Sodium Chloride 20 meq in 1,000 mls @ 80 mls/hr 08/25/18 19:00 08/26/18 11:37 Normal Saline W/20 Meq Kcl IV 09/24/18 18:59 0 mls/hr .[id number] ANNELISE Infusion Ondansetron HCl 4 mg 08/25/18 18:15 08/25/18 20:57 Zofran IV 09/24/18 18:14 4 mg Q6H PRN Administration Nausea NPO Date Last Intake of Fluids: 08/25/18 Time Last Intake of Fluids: 23:00 Date Last Intake of Solids: 08/25/18 Time Last Intake of Solids: 23:00 Past Medical History Medical History Pancreatic cancer (Chronic) Hypertension (Chronic) Patient is Latter day (Chronic) Osteoarthritis (Chronic) Past Family History Family History Father Family history of diabetes mellitus Past Surgical History Surgical History History of pancreatic surgery (Chronic) WHIPPLE PROCEDURE (MAR 2018) History of ERCP (Chronic) History of colonoscopy (Chronic) History of tonsillectomy (Chronic) Social History Smoking Status: Never smoker Hx Alcohol Use: No Hx Substance Use: No substance use type: does not use Physical Exam Vital Signs Last Vital Signs Temp 36.5 C 08/26/18 07:27 Pulse 68 08/26/18 08:20 Resp 20 08/26/18 07:27 BP 167/68 H 08/26/18 07:27 Pulse Ox 96 08/26/18 07:27 Testing Laboratory Results 08/26/18 06:00 08/26/18 06:00 PT 10.1 Seconds (9.0-12.0) 08/25/18 15:34 INR 1.0 (0.9-1.1) 08/25/18 15:34 APTT 24.5 Seconds (21.0-31.0) 08/25/18 15:34 Blood Type A Positive 08/25/18 15:34 Antibody Screen NEGATIVE 08/25/18 15:34 Electrocardiogram Date: 08/25/18 Findings: + NSR @ (64) and + poor R wave progression
--- NOTE | 2018-08-26 12:34 | GI REPORT ---
Patient Name: Deneen Mccall Procedure Date: 08/26/2018 11:49 AM Date of : 1940 Admit Type: Inpatient Age: 77 Gender: Female Attending MD: Huang Billings MD Procedure: Upper GI endoscopy Providers: Huang Billings MD Referring MD: Sekou Solis, Alonzo Quigley, Tom Chadwick Md Indications: Hematemesis Patient Profile: 77-year-old with a history of pancreatic adenocarcinoma resected via Whipple in March 2018. Also had cardiac polyps noted to be biopsy-proven tubulovillous adenomas with high-grade dysplasia. Medicines: Monitored Anesthesia Care Complications: No immediate complications. Estimated blood loss: None. Estimated Blood Loss: Estimated blood loss: none. Procedure: Pre-Anesthesia Assessment: - Pre-Anesthesia Assessment: - Prior to the procedure, a History and Physical was performed, and patient medications, allergies and sensitivities were reviewed. The patient's tolerance of previous anesthesia was reviewed. Please see [facility] for complete details. - The risks and benefits of the procedure and the sedation options and risks were discussed with the patient. All questions were answered and informed consent was obtained. - Patient identification and proposed procedure were verified prior to the procedure by the physician and the nurse. The procedure was verified in the pre-procedure area in the procedure room. After obtaining informed consent, the endoscope was passed carefully and meticuously under direct vision and only advanced when the lumen was clearly identified, C02 insuflation was utilized throughout the entirity of the procedure. Throughout the procedure, the patient's blood pressure, pulse, and oxygen saturations were monitored continuously. After obtaining informed consent, the endoscope was passed under direct vision. Throughout the procedure, the patient's blood pressure, pulse, and oxygen saturations were monitored continuously. The Endoscope was introduced through the mouth, and advanced to the jejunum. The upper GI endoscopy was accomplished without difficulty. The patient tolerated the procedure well. Findings: The examined esophagus was normal. A few 3 to 20 mm pedunculated and sessile polyps with no bleeding and stigmata of recent bleeding were found in the cardia with scattered small red appearing sessile polyps, however, there seems to be sessile components that are contiguous with the pedunculated polyps. Biopsies were taken with a cold forceps for histology. Evidence of a Whipple was found in the gastric antrum. Healthy in apperanances without evidence of ulceration or stenosis. The examined jejunum was normal. Impression: - Normal esophagus. - A few gastric polyps. Biopsied. - Evidence of previous gastric surgery was found, characterized by healthy appearing mucosa. - Normal examined jejunum. Recommendation: - Await pathology results. - [facility] patient to [facility] for possible discharge same day. - Use Prilosec (omeprazole) 40 mg PO BID. - After pathology is reviewed, discussed endoscopic versus surgical approach to remove prior proven TVA with high-grade dysplasia. Huang Billings MD 08/26/2018 12:34:18 PM This report has been signed electronically. Note Initiated On: 08/26/2018 11:49 AM Number of Addenda: 0 I attest to the content of the Intraoperative Record and orders documented therein, exceptions below {[id number]}
--- NOTE | 2018-08-26 12:56 | Anesthesiology Progress Note ---
Date of Service August 26, 2018 Anesthesia Post Procedure Vital Signs Vital Signs: Temp Pulse Pulse Resp BP BP Pulse Ox 08/26/18 12:46 65 16 156/76 H 95 08/26/18 12:33 69 16 113/94 96 08/26/18 11:39 36.5 C 61 16 188/78 H 100 08/26/18 08:20 68 08/26/18 07:27 36.5 C 54 L 20 167/68 H 96 08/26/18 04:00 36.7 C 61 20 127/74 95 08/26/18 00:00 36.7 C 60 20 145/74 H 96 08/25/18 23:00 61 08/25/18 19:02 36.5 C 66 18 98 08/25/18 18:52 64 08/25/18 15:26 99 08/25/18 14:41 36.6 C 62 16 163/82 H 99 Transfer of Care Handoff Completed per policy Notes Mental Status: alert / awake / arousable Patient Amnestic to Procedure: Yes Nausea / Vomiting: adequately controlled Pain: adequately controlled Airway Patency, RR, SpO2: stable & adequate BP & HR: stable & adequate Hydration State: stable & adequate Anesthetic Complications: no major complications apparent
[2018-08-26] MEDS: POTASSIUM CHLORIDE / WTR 10 MEQ/100 ML PLCT IV SCH ×2 (13:54→15:24)
--- NOTE | 2018-08-26 15:54 | Hospitalist Progress Note ---
Date of Service August 26, 2018 Assessment & Plan (1) Upper GI bleed: This is a 77 yo F with a PMH of pancreatic cancer (s/p partial Whipple in Mar 2018, on adjuvant chemo), HTN and other medical problems below who presents after 2 episodes of hematemesis this morning. -Two episodes of hematemesis earlier today in the setting of chemo treatment for pancreatic cancer -Ddx: PUD, gastritis, anastomotic ulcer -CT abd/pelvis with postoperative changes compatible with partial pancreaticoduodenectomy (Whipple procedure). A stent is noted extending from the pancreas into the pancreaticoduodenal anastomosis. No bowel obstruction. Mild wall thickening is noted at the enterogastric anastomosis and there is mild central mesenteric inflammatory stranding with trace abdominal pelvic ascites, likely postsurgical. No drainable -Protonix bolus and drip started, continue with maintenance IV fluids -Patient is a Hinduism, refuses blood products. Monitor H/H -Appreciate GI input and recommendation -Status post EGD on 08/26 which showed normal esophagus, a few gastric polyps without bleeding and those are biopsies, evidence of previous gastric surgery with healthy-appearing mucosa -Clears restarted and will advance accordingly If stable will be discharged tomorrow morning (2) Pancreatic cancer: No acute symptoms (3) History of pancreatic surgery: S/p partial Whipple in Mar 2018 -Has completed 2 cycles of gemcitabine chemotherapy, with the most recent session 3 weeks ago -Follows with Dr. Chadwick -Likely to have follow-up appointment with Dr. Chadwick (4) Hypertension: Continue home dose atenolol (5) Patient is Hinduism: Not interested in receiving blood products DVT Ppx: SCDs in setting of hemetemesis Code status: FULL PCP: Derick ([place]) Dispo: Admitted to med [facility]. Plan to return home once medically stable. Clinically stable if hemoglobin remains stable and the patient is asymptomatic, we will discharge him tomorrow afternoon Subjective 08/26 The patient was seen and examined in medical telemetry unit She is a status post EGD No significant bleeding noted in the EGD She has been feeling a lot better Will start clears and advance as tolerated If stable will be discharged tomorrow Review of Systems Review of Systems: All systems reviewed and are unremarkable as noted below Constitutional: + malaise Gastrointestinal: + bloating; no nausea and no vomiting Neurologic: Alert, awake and oriented x3 Physical Exam Physical Exam: Lying in bed without significant discomfort Constitutional: well developed, well nourished, well groomed, cooperative and comfortable; no acute distress Eyes: PERRL, conjunctivae normal, anicteric sclerae ENMT: external ear and nose normal, oropharynx normal Mouth: no dentition abnormality Mallampati Class: II Neck: normal visual inspection Respiratory: normal respiratory effort Auscultation: lungs clear to auscultation bilaterally Cardiovascular: Rate/Rhythm: regular rate and regular rhythm Heart Sounds: no murmur Gastrointestinal (Abdomen): Inspection/Auscultation: abdomen normal to inspection and normal bowel sounds Percussion/Palpation: abdomen soft Musculoskeletal: No acute distress in any joints Skin: no rashes, warm and dry no jaundice Neurologic: Motor/Sensory: no asterixis Alert awake and oriented x3, Psychiatric: A+Ox3, euthymic affect Lymphatic: no cervical or axillary lymphadenopathy no lymphedema Results & Data Vital Signs (Past 12 Hours) Vital Signs Temp Pulse Resp BP Pulse Ox 08/26/18 15:29 36.4 C L 58 L 20 155/82 H 96 08/26/18 13:36 36.3 C L 57 L 16 155/74 H 92 08/26/18 13:10 55 L 20 167/88 H 96 08/26/18 12:46 65 16 156/76 H 95 08/26/18 12:33 69 16 113/94 96 08/26/18 11:39 36.5 C 61 16 188/78 H 100 08/26/18 08:20 68 08/26/18 07:27 36.5 C 54 L 20 167/68 H 96 08/26/18 04:00 36.7 C 61 20 127/74 95 Laboratory Results Short CBC 08/25/18 08/25/18 08/26/18 Range/Units 15:34 21:07 06:00 WBC 6.61 4.02 L (4.8-10.8) K/uL Hgb 12.0 11.0 L 10.5 L (12.0-16.0) g/dL Hct 37.4 34.0 L 32.8 L (37-47) % Plt Count 291 229 (130-400) K/uL BMP 08/25/18 08/26/18 15:34 06:00 Sodium 143 145 Potassium 3.3 L 3.1 L Chloride 108 H 114 H Carbon Dioxide 28 27 BUN 13 7 D Creatinine 0.65 0.56 L Glucose 98 83 Calcium 8.4 L 7.6 L Cardiac Enzymes 08/25/18 Range/Units 15:34 Troponin I 0.022 (0-0.045) ng/ml Liver Function 08/25/18 08/26/18 Range/Units 15:34 06:00 Total Bilirubin 0.7 0.9 (0.2-1) mg/dl AST 19 15 (15-37) U/L ALT 21 16 (12-78) U/L Alkaline Phosphatase 108 86 (45-117) U/L Albumin 2.9 L 2.2 L (3.4-5.0) gm/dl Medications Administered Current Inpatient Medications Atenolol (Tenormin) 25 mg PO QAM ANNELISE Stop: 09/25/18 08:59 Last Admin: 08/26/18 08:21 Dose: 25 mg Documented by: Potassium Chloride/Sodium Chloride (Normal Saline W/20 Meq Kcl) 20 meq in 1,000 mls @ 80 mls/hr IV .[id number] ANNELISE Stop: 09/24/18 18:59 Last Infusion: 08/26/18 13:31 Dose: 80 mls/hr Documented by: Acetaminophen (Ofirmev) 1,000 mg in 100 mls @ 400 mls/hr IV Q8H PRN; Protocol PRN Reason: Pain Stop: 09/24/18 18:44 Ondansetron HCl (Zofran) 4 mg IV Q6H PRN PRN Reason: Nausea Stop: 09/24/18 18:14 Last Admin: 08/25/18 20:57 Dose: 4 mg Documented by:
[2018-08-27 06:25] LABS: Basophils # (auto) 0.02 K/uL (0-0.2); Basophils % (auto) 0.3 %; Eosinophils # (auto) 0.33 K/uL (0-0.5); Eosinophils % (auto) 4.2 %; Hematocrit (blood only) 38.2 % (37-47); Hemoglobin 12.2 g/dL (12.0-16.0); Immature Granulocytes # (auto) 0.02 K/uL (0.00-0.02); Immature Granulocytes % (auto) 0.3 %; Lymphocytes # (auto) 1.48 K/uL (1.2-3.4); Mean Corpuscular Hgb Conc 31.9 g/dL (32-36); Mean Corpuscular Volume 93.2 fL (80-100); Mean Platelet Volume 10.7 fL (7.4-10.4); Monocytes # (auto) 0.63 K/uL (0.11-0.59); Monocytes % (auto) 8.1 %; Neutrophils # (auto) 5.32 K/uL (1.4-6.5); Neutrophils % (auto) 68.1 %; Platelet Count 271 K/uL (130-400); RDW Coefficient of Variation 16.6 % (11.5-14.5); RDW Standard Deviation 56.6 fL (36.4-46.3)
[2018-08-27 06:54] LABS: BUN Creatinine Ratio 9.5 (10-20); Calcium 7.9 mg/dl (8.5-10.1); Creatinine Clr Calc Pharmacy 57.3 ml/min; Est GFR (African American) 98.9; Est GFR (Non-African American) 85.3; Potassium 3.6 mmol/L (3.5-5.1)
[2018-08-27] MEDS: NSS + 20MEQ KCL 20 MEQ/1,000 ML BAG IV SCH (08:05)
[2018-08-27] MEDS: ATENOLOL 25 MG TABLET PO SCH (08:05)
--- NOTE | 2018-08-27 08:23 | Anesthesiology Progress Note ---
Date of Service August 27, 2018 Anesthesia Post Procedure Vital Signs Vital Signs: Temp Pulse Pulse Pulse Resp BP Pulse Ox 08/27/18 07:50 37.2 C 69 16 148/54 H 95 08/27/18 04:00 37.0 C 65 18 139/73 94 08/27/18 03:19 65 08/26/18 23:00 37.0 C 66 66 H 142/83 H 96 08/26/18 19:11 36.8 C 63 20 154/78 H 95 08/26/18 15:29 36.4 C L 58 L 20 155/82 H 96 08/26/18 13:36 36.3 C L 57 L 16 155/74 H 92 08/26/18 13:10 55 L 20 167/88 H 96 08/26/18 12:46 65 16 156/76 H 95 08/26/18 12:33 69 16 113/94 96 08/26/18 11:39 36.5 C 61 16 188/78 H 100 Notes Mental Status: alert / awake / arousable and participated in evaluation Nausea / Vomiting: adequately controlled Pain: adequately controlled Airway Patency, RR, SpO2: stable & adequate BP & HR: stable & adequate Hydration State: stable & adequate
--- NOTE | 2018-08-27 13:44 | Hospitalist Progress Note ---
Date of Service August 27, 2018 Assessment & Plan (1) Upper GI bleed: This is a 77 yo F with a PMH of pancreatic cancer (s/p partial Whipple in Mar 2018, on adjuvant chemo), HTN and other medical problems below who presents after 2 episodes of hematemesis this morning. -Two episodes of hematemesis earlier today in the setting of chemo treatment for pancreatic cancer -Ddx: PUD, gastritis, anastomotic ulcer -CT abd/pelvis with postoperative changes compatible with partial pancreaticoduodenectomy (Whipple procedure). A stent is noted extending from the pancreas into the pancreaticoduodenal anastomosis. No bowel obstruction. Mild wall thickening is noted at the enterogastric anastomosis and there is mild central mesenteric inflammatory stranding with trace abdominal pelvic ascites, likely postsurgical. No drainable -Protonix bolus and drip started, continue with maintenance IV fluids -Patient is a Confucianism, refuses blood products. Monitor H/H -Appreciate GI input and recommendation -Status post EGD on 08/26 which showed normal esophagus, a few gastric polyps without bleeding and those are biopsies, evidence of previous gastric surgery with healthy-appearing mucosa -Clears restarted and will advance accordingly -Has been tolerating regular diet and ambulating without any symptoms -Hemoglobin remains stable -She will be discharged this afternoon (2) Pancreatic cancer: No acute symptoms Was advised to keep follow-up appointment with GI at [facility] (3) History of pancreatic surgery: S/p partial Whipple in Mar 2018 -Has completed 2 cycles of gemcitabine chemotherapy, with the most recent session 3 weeks ago -Follows with Dr. Chadwick -Likely to have follow-up appointment with Dr. Chadwick (4) Hypertension: Continue home dose atenolol Blood pressure is controlled (5) Patient is Confucianism: Not interested in receiving blood products DVT Ppx: SCDs in setting of hemetemesis Code status: FULL PCP: Derick ([place]) Dispo: Admitted to med [facility]. Plan to return home once medically stable. Clinically stable if hemoglobin remains stable and the patient is asymptomatic, we will discharge him tomorrow afternoon Discharge this afternoon Subjective 08/26 The patient was seen and examined in medical telemetry unit She is a status post EGD No significant bleeding noted in the EGD She has been feeling a lot better Will start clears and advance as tolerated If stable will be discharged tomorrow 08/27 The patient was seen and examined in medical telemetry unit She has been feeling a lot better and has been tolerating regular diet No problem with ambulation Review of Systems Review of Systems: All systems reviewed and are unremarkable as noted below Gastrointestinal: + bloating; no nausea and no vomiting Neurologic: Alert, awake and oriented x3 Physical Exam Physical Exam: No apparent distress at rest Constitutional: well developed, well nourished, well groomed, cooperative and comfortable; no acute distress Eyes: PERRL, conjunctivae normal, anicteric sclerae ENMT: external ear and nose normal, oropharynx normal Mouth: no dentition abnormality Mallampati Class: II Neck: normal visual inspection Respiratory: normal respiratory effort Auscultation: lungs clear to auscultation bilaterally Cardiovascular: Rate/Rhythm: regular rate and regular rhythm Heart Sounds: no murmur Gastrointestinal (Abdomen): Inspection/Auscultation: abdomen normal to inspection and normal bowel sounds Percussion/Palpation: abdomen soft; abdomen nontender Skin: no rashes, warm and dry no jaundice Neurologic: Motor/Sensory: no asterixis Alert awake and oriented x3, Psychiatric: A+Ox3, euthymic affect Lymphatic: no cervical or axillary lymphadenopathy no lymphedema Results & Data Vital Signs (Past 12 Hours) Vital Signs Temp Pulse Pulse Resp BP Pulse Ox 08/27/18 11:37 36.9 C 61 18 163/84 H 96 08/27/18 08:46 67 08/27/18 07:50 37.2 C 69 16 148/54 H 95 08/27/18 04:00 37.0 C 65 18 139/73 94 08/27/18 03:19 65 Laboratory Results Short CBC 08/27/18 Range/Units 05:49 WBC 7.80 (4.8-10.8) K/uL Hgb 12.2 (12.0-16.0) g/dL Hct 38.2 (37-47) % Plt Count 271 (130-400) K/uL BMP 08/27/18 05:49 Sodium 143 Potassium 3.6 D Chloride 111 H Carbon Dioxide 26 BUN 6 L Creatinine 0.63 Glucose 88 Calcium 7.9 L Medications Administered Current Inpatient Medications [facility]) [facility] [place]: 09/25/18 08:59 Last Admin: 08/27/18 08:05 Dose: 25 mg Documented by: Potassium Chloride/Sodium Chloride (Normal Saline W/20 Meq Kcl) 20 meq in 1,000 mls @ 80 mls/hr IV .[id number] ANNELISE Stop: 09/24/18 18:59 Last Admin: 08/27/18 08:05 Dose: 80 mls/hr Documented by: Acetaminophen (Ofirmev) 1,000 mg in 100 mls @ 400 mls/hr IV Q8H PRN; Protocol PRN Reason: Pain Stop: 09/24/18 18:44 Ondansetron HCl (Zofran) 4 mg IV Q6H PRN PRN Reason: Nausea Stop: 09/24/18 18:14 Last Admin: 08/25/18 20:57 Dose: 4 mg Documented by:
--- NOTE | 2018-08-28 07:25 | Discharge Summary ---
Date of Service August 28, 2018 Admission HPI Per Admitting Provider This is a 77 yo F with a PMH of pancreatic cancer (s/p partial Whipple in Mar 2018, on adjuvant chemo), HTN and other medical problems below who presents after 2 episodes of hematemesis this morning. Patient has completed 2 cycles of gemcitabine chemotherapy, with the most recent session 3 weeks ago. Was due again last week, but due to low-grade fever and weakness, Dr. Chadwick decided to postpone chemotherapy until next week. Patient took Zofran this morning prior to eating breakfast this morning and then worked in [place]. [place] nauseated around 10:30 AM and threw up a teaspoon-sized amount of bright red blood, f ollowed by one more episode of darker emesis with presence of blots around 1pm. Also had one normal bowel movement prior to arrival. Denies any melena or hematochezia. Remote history of GERD in the past. No history of peptic ulcer disease. Not taking aspirin or anticoagulation. Currently endorsing intermittent aching pain in lower abdomen as well as generalized weakness. Feels nauseated when she eats or is digesting food but currently is asymptomatic. No fever, chills, lightheadedness, headache, chest pain, shortness of breath, dysuria, diarrhea or constipation. Vital signs stable. Hemoglobin stable at 12. BUN/Cr within normal range. LFTs normal. Of note, patient is a Mormonism and is not interested in receiving any blood products. Admission Exam Per Admitting Provider Physical Exam: General Appearance: WD/WN, no apparent distress, resting comfortably, appears chronically ill Head: normocephalic, atraumatic Eyes: normal inspection, PERRL, EOMI ENT: hearing grossly normal, pharynx normal (moist mucous membranes) Neck: supple, no JVD, no adenopathy Respiratory/Chest: lungs clear to auscultation. No wheezes, rales or rhonci. No respiratory distress or accessory muscle use Cardiovascular: regular rate, rhythm, no murmur, normal peripheral pulses, 1+ BLE edema Abdomen/GI: normal bowel sounds, soft, mildly tender to palpation in RLQ, LLQ. No guarding or distention Extremities/Musculoskelatal: normal inspection, no calf tenderness, normal capillary refill Neurologic/Psych: alert, normal mood/affect, oriented x 3 Skin: normal color, warm/dry Principal Diagnosis Upper GI bleed, EGD negative for any active bleeding but did show gastric polyp, hypertension, history of pancreatic cancer Discharge Exam Constitutional well developed, well nourished, well groomed, cooperative and comfortable; no acute distress Eyes PERRL, conjunctivae normal, anicteric sclerae ENMT external ear and nose normal, oropharynx normal Mouth: no dentition abnormality Mallampati Class: II Neck normal visual inspection Respiratory normal respiratory effort Auscultation: lungs clear to auscultation bilaterally Cardiovascular Rate/Rhythm: regular rate and regular rhythm Heart Sounds: no murmur Gastrointestinal (Abdomen) Inspection/Auscultation: abdomen normal to inspection and normal bowel sounds Percussion/Palpation: abdomen soft; abdomen nontender Skin no rashes, warm and dry no jaundice Neurologic Motor/Sensory: no asterixis Psychiatric A+Ox3, euthymic affect Lymphatic no cervical or axillary lymphadenopathy no lymphedema Discharge Data Allergies Allergy/AdvReac Type Severity Reaction Status Date / Time No Known Allergies Allergy Verified 08/25/18 16:24 Consultations 08/25/18 16:31 ED Decision to Admit Stat 08/25/18 18:15 Consult Gastroenterology Routine Procedures Performed Operation Date: 08/26/18 08:30 Actual Procedures p EGD Biopsy Cytology(Not Applicable) - Huang Billings Ordered Studies 08/25/18 15:26 CT abd pelvis wo con Stat Hospital Course (1) Upper GI bleed: This is a 77 yo F with a PMH of pancreatic cancer (s/p partial Whipple in Mar 2018, on adjuvant chemo), HTN and other medical problems below who presents after 2 episodes of hematemesis this morning. -Two episodes of hematemesis earlier today in the setting of chemo treatment for pancreatic cancer -Ddx: PUD, gastritis, anastomotic ulcer -CT abd/pelvis with postoperative changes compatible with partial pancreaticoduodenectomy (Whipple procedure). A stent is noted extending from the pancreas into the pancreaticoduodenal anastomosis. No bowel obstruction. Mild wall thickening is noted at the enterogastric anastomosis and there is mild central mesenteric inflammatory stranding with trace abdominal pelvic ascites, likely postsurgical. No drainable -Protonix bolus and drip started, continue with maintenance IV fluids -Patient is a Tenriism, refuses blood products. Monitor H/H -Appreciate GI input and recommendation -Status post EGD on 08/26 which showed normal esophagus, a few gastric polyps without bleeding and those are biopsies, evidence of previous gastric surgery with healthy-appearing mucosa -Clears restarted and will advance accordingly -Has been tolerating regular diet and ambulating without any symptoms -Hemoglobin remains stable -She will be discharged this afternoon (2) Pancreatic cancer: No acute symptoms Was advised to keep follow-up appointment with GI at [facility] [address] (3) History of pancreatic surgery: S/p partial Whipple in Mar 2018 -Has completed 2 cycles of gemcitabine chemotherapy, with the most recent session 3 weeks ago -Follows with Dr. Chadwick -Likely to have follow-up appointment with Dr. Chadwick (4) Hypertension: Continue home dose atenolol Blood pressure is controlled (5) Patient is Tenriism: Not interested in receiving blood products DVT Ppx: SCDs in setting of hemetemesis Code status: FULL PCP: Derick ([place]) Dispo: Admitted to [facility]. Plan to return home once medically stable. Clinically stable if hemoglobin remains stable and the patient is asymptomatic, we will discharge him tomorrow afternoon Discharge this afternoon Total Time Total Time Spent Total Time Spent (In Minutes): 35 minutes Total Time Includes: Examination of the Patient, Discharge Planning, Medication Reconciliation and Communication With Other Providers Discharge Plan Discharge Items Patient Disposition: Home - Self-Care Reason For Visit: HEMETEMESIS Discharge Diagnosis: Upper GI bleed, EGD negative for any active bleeding but did show gastric polyp, hypertension, history of pancreatic cancer Condition: Good Discharge Goals: Decrease discomfort, Improve function and Increase independence Activity: Resume your previous activity Non-emergency contact: Primary Care Provider Call non-emergency contact if: you have any medication questions and your symptoms worsen Follow-up/Referrals: Gloria Sepulveda MD [Primary Care Provider] - (Please make an appointment with your primary care physician within 1 week. Please keep appointment with gastroenterology in [facility]) Diet: Regular Addtl Provider Instructions: Please keep your appointments with GI Prescriptions: New omeprazole 40 mg capsule,delayed release(DR/EC) 40 mg PO BID Qty: 60 RF: 0 Continued atenolol 25 mg Tablet 25 mg PO QAM RF: 0 ondansetron HCl 8 mg tablet 8 mg PO Q8H PRN (Reason: Nausea) RF: 0 Stand-Alone Forms: [facility] Discharge Orders: Discharge Order (Routine); Ordered 08/27/18 Ordered By: Sekou Solis Admission Data Admit Date/Time: 08/25/18 17:14 Attending Provider: Sekou Solis Admit Provider: Aleks Augustin Primary Care Provider: Gloria Sepulveda Other Providers: Aleks Augustin ; Huang Billings ; July Wallace Service: Telemetry Medical Other Interventions: Discharge Summary Assessment (RN) Last Done: 08/27/18 14:10 DC Date/Time DO NOT enter until pt leaves facility: 08/27/18 15:31
== END 2018-08-27 15:31 | disposition home or self-care (01) | DRG 378 ==
LOC: ED 14:38 → 2N 17:14 → SUATTDRO 17:14 → 2N 17:45